=== PATIENT | male | born 1995 | race Caucasian/White ===

== ENCOUNTER → 2016-10-21 | Outpatient (CLI) | payer OTHER ==
[~2016-10-21] MED LIST: DOXY100C76 PO
== END | disposition home or self-care (01) ==
LOC: C.RDSM 12:18
PROVIDERS: ATTEND Family Medicine
DX: M79.652 Pain in left thigh (principal)

== ENCOUNTER → 2017-02-19 | Outpatient (CLI) | payer OTHER ==
--- NOTE | 2017-02-19 21:05 | DIAGNOSTIC IMAGING REPORT ---
MRI OF THE LEFT KNEE CLINICAL HISTORY: Left knee pain. COMPARISON STUDY: No priors. TECHNIQUE: MRI of the left knee was performed utilizing proton density, T1, and T2-weighted sequences in the axial, sagittal, coronal planes. IV contrast was not administered for this examination. Note that interpretation is suboptimal without plain film correlate. FINDINGS: Menisci: The medial and lateral menisci are intact. Ligaments: The anterior and posterior cruciate ligaments are intact. The medial and lateral collateral ligaments are within normal limits. Extensor mechanism: The extensor mechanism is intact. Hoffa's fat pad is normal in appearance. Articular cartilage and bone: The articular cartilage is intact and well maintained all 3 compartments. Normal marrow signal is preserved of the visualized bony structures. Joint effusion: None. Soft tissues: The musculature surrounding the knee joint is normal in bulk and signal intensity. The hamstrings tendons are normal as visualized. IMPRESSION: 1. There is no evidence of meniscal or ligamentous injury in the left knee. 2. No bony abnormality is identified. Electronically signed by: Gene Amezcua M.D. 02/19/2017 9:03 PM Dictated Date/Time: 02/19/2017 8:59 PM
== END | disposition home or self-care (01) ==
LOC: C.MRI 19:42
PROVIDERS: ATTEND Family Medicine
DX: M25.562 Pain in left knee (principal)